=== PATIENT | female | born 1995 | race American Indian/Alaskan Native ===

== ENCOUNTER 2019-11-04 06:15 | Inpatient (IN) | payer MEDICAID ==
[~2019-11-04 06:15] MED LIST: Acetaminophen 325 MG Tab PO PRN; Acetaminophen/oxyCODONE 325-5 MG Tab PO PRN; Carboprost Tromethamine 250 MCG/1 ML Amp IM PRN; Citric Acid/Sodium Citrate Solution 30 ML Cup PO ONE; Methylergonovine 0.2 MG/1 ML Amp IM PRN; Misoprostol 400 MCG (4 X 100 MCG TAB) RECTAL PRN; Naloxone 2 MG/2 ML Syringe IVPUSH PRN; Ondansetron 4 MG/2 ML SDV IVPUSH PRN; Tranexamic Acid 1,000 MG in Sodium Chloride 0.9% 100 ML IV PRN; ceFAZolin 2 GM in Premix Bag 1 BAG IV ONE; diphenhydrAMINE 50 MG/ML SDV IVPUSH PRN; ePHEDrine 50 MG/ML SDV IVPUSH PRN
[2019-11-04] MEDS ORDERED: Oxytocin/Normal Saline 30 UNIT/500 ML BAG ONE (07:24)
[2019-11-04] MEDS: Lactated Ringers 1,000 ML IV SCH ×3 (07:40→19:19)
[2019-11-04] MEDS ORDERED: Oxytocin/Normal Saline 30 UNIT/500 ML BAG IV SCH (07:45)
--- NOTE | 2019-11-04 07:49 | OBOUT ---
DATE: 11/04/2019 DATE AND TIME OF NST: 11/04/2019, 7 o'clock to 7:20. REASON FOR NST: 1. Intrauterine at 39 weeks. 2. Previous x1. Request repeat low-transverse . 3. Group B Streptococcus negative. NST INTERPRETATION: During this time period, heart tone at baseline is approximately 125 to 130 and at least two 15 x 15 beats per minute accelerations, making this strip reactive as well as also noted to be reassuring. Tocometer reveals potential 4 contractions. Initial blood pressure 112/64, heart rate 98, temp 97.9. ASSESSMENT: 1. Nonstress test, reactive and reassuring. 2. Tocometer with contractions noted. PLAN: We will proceed to the OR as soon as crew is ready and available. Please see H and P done through [employer] for this. Records were called for, reviewed and supplemented by patient history as well as patient notes impaired glucose tolerance. Otherwise, history has been unchanged. Physical form will be updated. We will proceed to the OR as soon as they were ready. [facility] /[id number]
[2019-11-04] MEDS ORDERED: Oxytocin/Normal Saline 30 UNIT/500 ML BAG IV ONE (11:15)
[2019-11-04] MEDS: Ketorolac 30 MG/ML SDV IVPUSH SCH ×2 (14:59→20:50)
[2019-11-04] MEDS: Simethicone 80 MG Tab.Chew PO SCH ×3 (15:00→23:10)
[2019-11-04] MEDS: Docusate Sodium 100 MG Cap PO PRN (23:09)
[2019-11-05] MEDS: Ketorolac 30 MG/ML SDV IVPUSH SCH (03:03)
[2019-11-05] MEDS: Lactated Ringers 1,000 ML IV SCH (03:03)
--- NOTE | 2019-11-05 08:16 | PN ---
DATE: 11/05/2019 Postop day #1, status post repeat low transverse . SUBJECTIVE: The patient is tolerating p.o. She has got up to the side the bed. Khan is still in place. No flatus. Pain is under control. OBJECTIVE: General: Temperature 98.4, heart rate 70, blood pressure 92/54, respiratory rate 16. Lungs: Clear to auscultation bilaterally. Heart: S1, S2. Regular rate and rhythm. Abdomen: Firm uterus. -1 below umbilicus. Aquacel dressing dry and intact. Extremities: DONY hose are on. LABORATORY DATA: Pending is a CBC. ASSESSMENT: Postop day #1, status post repeat low transverse section. PLAN: We will continue to follow clinically and closely. The patient understands and agrees with the above treatment plan. [facility] /[id number]
--- NOTE | 2019-11-05 08:58 | OR ---
DATE: 11/04/2019 PREOPERATIVE DIAGNOSES: 1. Intrauterine at 39 weeks by 19 and 3/7-week ultrasound. 2. Previous section, requests repeat low transverse section. 3. Group B Streptococcus negative. 4. Impaired glucose tolerance. 5. 4, para 1-0-2-1. POSTOPERATIVE DIAGNOSES: 1. Intrauterine at 39 weeks by 19 and 3/7-week ultrasound - delivered. 2. Previous section, requests repeat low transverse section. 3. Group B Streptococcus negative. 4. Impaired glucose tolerance. 5. 4, para 1-0-2-1. 6. Macrosomic infant suspected, weight 4185 grams 7. Peritoneal lysis of adhesion required with adhesions noted from peritoneum to anterior uterus. PROCEDURE PERFORMED: Nonstress test followed by repeat low transverse section. SENIOR EMBEDDED SOFTWARE ENGINEER: Marti Lopez MD ANESTHESIA: Spinal. ESTIMATED BLOOD LOSS: 800 mL. IV FLUIDS: 700 mL. URINE OUTPUT: 350 mL and clear jose. START: 0814. UTERINE INCISION: 0818. DELIVERY: 818. STOP: 839. FINDING: Female, score 9 and 9, weight pending. DESCRIPTION OF PROCEDURE: After proper consent was obtained, the patient was brought to the operating room where spinal anesthetic was administered. Khan was placed in the preop under sterile conditions. Abdomen was prepped and draped in normal sterile fashion with the patient placed in supine position with left lateral tilt. A skin incision was then made over the lower abdomen in transverse Pfannenstiel- type fashion over previous scar. This was carried down to the fascia and scored in the midline. Subcutaneous tissue raked laterally with Roblero retractor and fascial incision was extended in transverse fashion using curved Tang. Maureen clamps x2 used to grasp the superior aspect of the fascia and rectus muscles were dissected from the fascia using sharp and blunt technique. In a similar fashion, Maureen clamps x2 were used to grasp the inferior portion of the incision and rectus and pyramidalis muscle were dissected from the fascia using sharp and blunt technique. Abdominal muscles were in midline using blunt technique and with a hemostat due to scarring over this area. Abdominal cavity was entered with blunt technique and incision was extended superiorly and inferiorly with blunt technique with care as there were some adhesions anteriorly from the uterus to the peritoneum. These were lysed under direct visualization with Metzenbaum scissors. Kolton O large retractor was then introduced and used. Vesicouterine peritoneum was identified, incised in transverse fashion with Metzenbaum scissors and bladder flap was made digitally. A curvilinear incision was made on the lower uterine segment at 0818 hours. Uterus was entered sharply. Uterine incision was then extended in transverse fashion using blunt technique. Bulging bag of water was then ruptured with Allis clamps. Clear fluid returned. vertex was then delivered through the incision followed by rest of the with minimal difficulty. Mouth and nares were suctioned. Cord was doubly clamped and cut and was brought over to the team. Then, approximately 10 mL of cord blood was obtained for labs. Placenta then delivered with gentle cord traction and fundal massage. Uterine cavity was then cleared of all blood clots and debris with lap sponge. Emerson clamps were used to grasp the uterine incision. This was closed in a running locked fashion, tied at lateral margins with 1-0 Vicryl. Second imbricating layer was then applied with 1-0 Vicryl and tied at lateral margins. Right of midline, there was minimal bleeding. Czkplr-oh-bcysn stitch was applied and hemostasis was reassured. First inspection of the uterine incision revealed hemostasis. Kolton O retractor was then removed and paracolic gutters were then cleared of all blood clots and debris with lap sponge. Anterior cul-de-sac was irrigated copiously and all blood clots and debris removed. Second and final inspection of uterine incision and anterior cul-de-sac revealed hemostasis. Rectus muscles were then reapproximated in the midline with [id number] stitch using 1-0 Vicryl. Subfascial tissue was found to be hemostatic. Fascia closed in a running fashion and tied at lateral margins with 0 looped PDS. Subcutaneous tissue was irrigated copiously. Hemostasis was reassured. Skin was reapproximated with medium parrish. Sterile Aquacel dressing was applied. No immediate complications were noted. Sponge, lap, and needle counts were correct. The patient received 2 g of Ancef preoperatively, Pitocin per protocol, and received Toradol at the conclusion of the case for pain control. Mother and are currently stable at the time of dictation. [facility] /[id number] [facility]
[2019-11-05] MEDS: Prenatal Multivitamin with Calcium/Folic Acid/Iron Tab PO SCH (09:05)
[2019-11-05] MEDS: Simethicone 80 MG Tab.Chew PO SCH ×4 (09:06→21:32)
[2019-11-05] MEDS: Docusate Sodium 100 MG Cap PO PRN ×2 (09:06→21:32)
[2019-11-05] MEDS: Ibuprofen 800 MG Tab PO PRN ×2 (13:24→21:33)
[2019-11-05] MEDS ORDERED: Ondansetron 4 MG/2 ML SDV IV ONE (13:27)
[2019-11-05] MEDS ORDERED: ePHEDrine 50 MG/ML SDV IV ONE (13:27)
[2019-11-05] MEDS ORDERED: Sodium Bicarbonate 4.2% 2.5 MEQ/5 ML SDV ONE (13:27)
[2019-11-05] MEDS ORDERED: Dexamethasone 4 MG/ML SDV IV ONE (13:27)
[2019-11-05] MEDS ORDERED: Ketorolac 30 MG/ML SDV IVPUSH ONE (13:27)
[2019-11-05] MEDS ORDERED: Lactated Ringers 1,000 ML IV ONE (13:27)
[2019-11-05] MEDS ORDERED: Morphine PF 1 MG/ML Amp ONE (13:27)
[2019-11-06] MEDS: Simethicone 80 MG Tab.Chew PO SCH (09:38)
[2019-11-06] MEDS: Ibuprofen 800 MG Tab PO PRN (09:39)
[2019-11-06] MEDS: Prenatal Multivitamin with Calcium/Folic Acid/Iron Tab PO SCH (09:39)
[2019-11-06] MEDS: Docusate Sodium 100 MG Cap PO PRN (09:39)
--- NOTE | 2019-11-06 19:57 | DISCH ---
ADMITTING DIAGNOSES: 1. Intrauterine at 39 weeks by 19-3/7 week ultrasound. 2. Previous section, requests repeat low transverse section. 3. Group B Streptococcus negative. 4. Impaired glucose tolerance. 5. G4, P1-0-2-1. DISCHARGE DIAGNOSES: 1. Intrauterine at 39 weeks by 19-3/7 week ultrasound, delivered. 2. Previous section, requests repeat low transverse section. 3. Group B Streptococcus negative. 4. Impaired glucose tolerance. 5. G4, P1-0-2-1. 6. Macrosomic infant weighing 4185 g. 7. Peritoneal lysis of adhesions required anteriorly from uterus to peritoneum region. 8. Anemia, acute blood loss. Hemoglobin dropping from 12 to 9.4 postoperatively. PROCEDURE PERFORMED: Nonstress test followed by repeat low transverse section per Dr. Dixon. HISTORY OF PRESENT ILLNESS: Please see H and P. SUMMARY OF HOSPITAL COURSE: The patient on the above date with above diagnoses underwent elective repeat low transverse yielding a female, scores 9 and 9, weighing 4185 g (9 pounds 4 ounces). Lysis of adhesions was noted. Please see op report for further details. Postop day #1, please see progress note. Postop day #2, date of discharge, the patient is tolerating p.o., is ambulating, urinating, passing flatus, requesting discharge. PHYSICAL EXAMINATION: Vital Signs: Last set of vitals: Temperature 97.9, heart rate 89, blood pressure 114/64, respiratory rate is 20. Lungs: Clear to auscultation bilaterally. Heart: S1, S2. Regular rate and rhythm. Firm uterus, -1 below umbilicus. Aquacel dressing dry and intact. Extremities: No peripheral edema. No calf pain. LABORATORY DATA: On 11/05/2019, hemoglobin 9.4, compared to predelivery hemoglobin 12. CONDITION ON DISCHARGE COMPARED TO CONDITION ON ADMISSION: Improved. DISCHARGE INSTRUCTIONS: 1. Diet: As tolerated. 2. Activity: No lifting more than 20 pounds. No sit-ups or straining. Pelvic rest for the next 6 weeks with immediate return to fertility discussed with the patient. Reasons to return or go to the emergency room were discussed with the patient in detail, including but not limited to, temperature greater than 100.4, foul- smelling discharge, red hot tender breasts, or increased vaginal bleeding or increasing pain, drainage, redness around the incision. DISCHARGE MEDICATIONS: 1. Mogy-kli-jnhocxs ibuprofen for pain. Percocet 5/325, 1 to 2 q.6 hours p.r.n., #15, no refills. Discussed use of medication, adverse and unwanted effects, as well as precautions with driving. 2. Iron sulfate 325 b.i.d. x6 weeks. Dispensed q.s., no refills. 3. Colace 100 mg b.i.d. p.r.n., #60, no refills. 4. Breast pump script. FOLLOWUP RECOMMENDATION: For either the , , or , but the patient states she cannot get back until the for evaluation and will make appointment for then for staple removal. In terms of her baby, she is going to follow up in [facility] on Monday, the , which is recommended. Discussed the importance of followup and ramifications of not doing so. She understands and agrees with the above treatment plan. Please see discharge paperwork for further details as well. [facility] /[id number]
== END 2019-11-06 10:00 | disposition home or self-care (01) | DRG 787 ==
LOC: DL.MS 06:15 → OBSVTOIN 08:19 → DL.OB 08:20
PROVIDERS: ADMIT Family Medicine; ATTEND Family Medicine
PROC: 10D00Z1 Extraction of Products of Conception, Low, Open Approach (ICD-10-PCS; principal; 2019-11-04)
DX: O34.211 Maternal care for low transverse scar from previous cesarean delivery (principal); D62 Acute posthemorrhagic anemia; Z37.0 Single live birth; Z3A.39 39 weeks gestation of pregnancy; O99.02 Anemia complicating childbirth; O36.63X0 Maternal care for excessive fetal growth, third trimester, not applicable or unspecified; O99.62 Diseases of the digestive system complicating childbirth; K66.0 Peritoneal adhesions (postprocedural) (postinfection); Z28.82 Immunization not carried out because of caregiver refusal
CPT/HCPCS: 36415; 51701; 51702; 59409; 82962; 85027; 86850; 86900; 86901; A9270-GY; J0690; J1100; J1200; J1885; J2274; J2405; J2590; J7120; U0002